=== PATIENT | female | born 1990 | race Caucasian/White ===

== ENCOUNTER 2017-07-26 09:54 | Inpatient (IN) | payer OTHER ==
[~2017-07-26] VITALS: Ht 162.6 cm; Wt 72.6 kg
[2017-07-26 10:30] VITALS: BP 122/78
[2017-07-26] MEDS ORDERED: GABA600T2 PO (11:09)
[2017-07-26] MEDS ORDERED: LAMO100T2 PO (11:09)
--- NOTE | 2017-07-26 11:11 | NUR ---
Initial Assessment Pt is a 26 y/o female, NKFA and NKDA, here for Opiate drug of choice r/t Heroin 1-1.5g IV daily for the last year with the last use yesterday and Benzo drug of choice r/t Xanax 4-6mg PO daily for a year with last use yesterday. Pt states that she uses Marijuana and Methamphetamine both unknown dose and frequency and last use since she states that she uses them occasionally. Pt states that she smokes 1 pack of cigarettes per day since a teenager. HHx: Anxiety, Depression, Bipolar, Chlamydia 6 months ago, insomnia, attempted suicide 06/2016, is currently homeless & in fpc in 2007. Pt denies having a seizure. FHx: Father, Mother and Sister Substance Abuse use and mother with suicided when she was 14 years old. Pt denies having a psychologist, psychiatrist or internal MD. No home medications brought. No suicidal ideations, hallucinations or delusions at this time. Pt is A&O x 3 with confusion to time and date, unsteady gait with ambulation. Features symmetrical, PERRLA 3-4mm, mild dizziness, no STALLINGS at this time. Pt denies chest pain, pulses present on BUE's and BLE's. Clear lung sounds in Bilateral U/L lobes, no SOB or respiratory distress noted. Active bowel sounds in all 4 quads, Last BM today, no constipation or diarrhea noted. Pt denies dysuria and no burning or itchiness noted. Skin is not intact with tracts on BUE's FA's with Right FA a nodule with inflammation and BLE and bilateral feet with inflammation. Pt is currently anxious with anxiety, chills, hot flashes, tremors and sweating observed, frequent yawning,watery eyes, nasal congestions, stomach cramps, nausea. COWS 26 CIWA 17 Temp 98.2 HR 112 RR 18 BP 122/78 SpO2 96% RA 9/10 generalized pain. Addendum: 07/26/17 at 1641 by CARLOS PRETTY RN Pt states that she has done detox at [facility] 06/2016
[2017-07-26] MEDS ORDERED: MIRALAX 17 GM POWD.PACK PO PRN (11:15)
[2017-07-26] MEDS ORDERED: DICYCLOMINE HCL 20 MG TABLET PO PRN (11:15)
[2017-07-26] MEDS ORDERED: MAG HYDROX/AL HYDROX/SIMETH 30 ML LIQUID UDC PO PRN (11:15)
[2017-07-26] MEDS ORDERED: IBUPROFEN 600 MG TABLET PO PRN (11:15)
[2017-07-26] MEDS ORDERED: BUPRENORPHINE HCL 2 MG TAB.SUBL SL PRN (11:15)
[2017-07-26] MEDS ORDERED: MAGNESIUM HYDROXIDE 30 ML LIQUID UDC PO PRN (11:15)
[2017-07-26] MEDS ORDERED: ONDANSETRON 4 MG/2 ML VIAL IM PRN (11:15)
[2017-07-26] MEDS ORDERED: CLONIDINE HCL 0.1 MG TABLET PO PRN (11:15)
[2017-07-26] MEDS ORDERED: LORAZEPAM 2 MG/1 ML VIAL IM PRN (11:15)
[2017-07-26] MEDS ORDERED: LOPERAMIDE HCL 2 MG CAPSULE PO PRN ×2 (11:15)
[2017-07-26] MEDS ORDERED: METHOCARBAMOL 750 MG TABLET PO PRN (11:15)
[2017-07-26] MEDS ORDERED: diphenhydrAMINE 50 MG CAPSULE PO PRN (11:15)
[2017-07-26] MEDS ORDERED: HYDROXYZINE PAMOATE 25 MG CAPSULE PO PRN (11:15)
[2017-07-26] MEDS ORDERED: ACETAMINOPHEN 325 MG TABLET PO PRN (11:15)
[2017-07-26] MEDS ORDERED: LORAZEPAM 1 MG TABLET PO PRN ×3 (11:15)
[2017-07-26] MEDS: LORAZEPAM 1 MG TABLET PO SCH ×3 (11:28→21:59)
[2017-07-26] MEDS: BUPRENORPHINE HCL 2 MG TAB.SUBL SL SCH ×3 (11:32→21:59)
[2017-07-26 12:00] VITALS: BP 122/78
[2017-07-26 13:03] LABS: BASOPHILS % (AUTO) 0.4 % (0.0-2.0); EOSINOPHILS % (AUTO) 0.5 % (0.0-7.0); HEMATOCRIT 40.8 % (31.2-41.9); HEMOGLOBIN 14.8 g/dL (10.9-14.3); LYMPHOCYTES % (AUTO) 16.5 % (20.5-51.5); MEAN CORPUSCULAR HEMOGLOBIN 29.4 uug (24.7-32.8); MEAN CORPUSCULAR HGB CONC 36 g/dL (32.3-35.6); MEAN CORPUSCULAR VOLUME 81.3 fL (75.5-95.3); MONOCYTES # (AUTO) 0.3 K/uL (2.0-10.0); MONOCYTES % (AUTO) 4.5 % (0.0-11.0); NEUTROPHILS # (AUTO) 4.7 K/uL (1.8-8.9); NEUTROPHILS % (AUTO) 78.1 % (38.5-71.5); PLATELET COUNT (AUTO) 233 K/uL (179-408); RED BLOOD CELL COUNT(AUTO) 5.02 MIL/uL (3.63-4.92); WHITE BLOOD COUNT (AUTO) 6.1 K/uL (3.8-11.8)
[2017-07-26 13:06] LABS: ETHANOL < 3 MG/DL (0-0)
[2017-07-26 13:10] LABS: CARBON DIOXIDE 32 mmol/L (21-32); CHLORIDE 93 mmol/L (98-107); CREATININE 0.9 mg/dL (0.6-1.3); GLUCOSE 142 mg/dL (74-106); UREA NITROGEN, BLOOD 8 mg/dL (7-18)
[2017-07-26 13:11] LABS: ALANINE AMINOTRANSFERASE 52 U/L (14-59); ALKALINE PHOSPHATASE 82 U/L (50-136); ASPARTATE AMINOTRANSFERASE 39 U/L (15-37); BILIRUBIN,TOTAL 0.9 mg/dL (0.2-1.0); MAGNESIUM 1.8 mg/dL (1.8-2.4)
--- NOTE | 2017-07-26 13:13 | NUR ---
Critical Lab-Potassium Critical Lab Report from Turbine Engineer "Brandon" with K+ 2.1; Notified Dr. Kirkpatrick and PAIGE Garcia with no new orders at this time. Pt is A&O x 3 with confusion to time and date. Pt denies chest pain, HR 110-112 bpm. Sitter present r/t unstable gait and ambulation. Will cont. to monitor the pt.
[2017-07-26 13:14] LABS: POTASSIUM 2.1 mmol/L (3.5-5.1)
[2017-07-26 13:21] LABS: THYROID STIMULATING HORMONE 0.788 mIU/mL (0.358-3.740)
--- NOTE | 2017-07-26 14:00 | NUR ---
New Orders-Supplements New order for HCG serum, K+ and Magnesium Supplements PO.
[2017-07-26 16:00] VITALS: BP 130/76
[2017-07-26] MEDS ORDERED: MAGNESIUM OXIDE 400 MG TABLET PO ONE (17:00)
[2017-07-26] MEDS: POTASSIUM CHLORIDE 20 MEQ TAB.PRT.SR PO SCH ×2 (17:03→21:59)
[2017-07-26] MEDS: GABAPENTIN 300 MG CAPSULE PO SCH (17:07)
[2017-07-26] MEDS ORDERED: HYDR25CA PO (17:09)
[2017-07-26] MEDS ORDERED: CLON0.1T PO (17:09)
[2017-07-26] MEDS ORDERED: MIRT45TA PO (17:09)
--- NOTE | 2017-07-26 19:36 | NUR ---
End of Shift Report to the night nurse: Pt is a 36 y/o female here for heroin, xanax, meth and marijuana use; 5 day Subutex and 5 day Ativan tapers ordered. V/S stable. No PRN given during my shift. Last ELENITA and CIWA. Endorsed to the night nurse to print the pix and mount them and to have the pt sign the education sheet.
--- NOTE | 2017-07-26 19:42 | NUR ---
START OF SHIFT Patient is a 26-year-old female admitted on 07/26/17 for heroin and Xanax dependence. Patient is FULL code status, on a regular diet, with NKA/NKFA. Patient has a past medical history of anxiety, depression, bipolar disorder, insomnia, Chlamydia, with a history of suicide attempts (last attempt 06/2016). Patient is on fall and seizure precautions with no history of seizure. Patient is currently on a 5-day Ativan and 5-day Subutex taper, tolerating well. Upon assessment, patient resting in bed with eyes closed, arousable to name and touch, oriented x3. Patient is noted with some scabs and track garcia at bilateral lower extremities, with a small nodule note on patient's right forearm. Safety measures in place, 1:1 in room for safety and until urine can be given. Bed locked in low position, side rails up x2, call light within reach. Will continue to monitor.
[2017-07-26 20:00] VITALS: BP 106/61
[2017-07-27] VITALS: BP 116/72
--- NOTE | 2017-07-27 | NUR ---
COWS AND CIWA DEFERRED COWS and CIWA deferred due to patient asleep; to be assessed and scored while patient is awake. Respirations even and unlabored. Safety measures in place, call light within reach. Will continue to monitor.
[2017-07-27 04:00] VITALS: BP 101/62
--- NOTE | 2017-07-27 07:05 | NUR ---
END OF SHIFT Patient is a 26-year-old female admitted on 07/26/17 for heroin and Xanax dependence. Patient is FULL code status, on a regular diet, with NKA/NKFA. Patient has a past medical history of anxiety, depression, bipolar disorder, insomnia, Chlamydia, with a history of suicide attempts (last attempt 06/2016). Patient is on fall and seizure precautions with no history of seizure. Patient is currently on a 5-day Ativan and 5-day Subutex taper, tolerating well. Patient slept for 11 hours, total intake of 220 mL, void x2, and stool x0. No PRN medications were given. Safety measures in place, 1:1 in room for safety and until urine can be given. Bed locked in low position, side rails up x2, call light within reach. Will endorse to day shift.
--- NOTE | 2017-07-27 07:19 | NUR ---
Start of Shift Notes: Received endorsement from night nurse. Patient is a 26 year old female admitted for opiate and BZO dependence who was placed on a 5-day Subutex and 5-day Ativan taper as ordered. No adverse reactions noted. Has past medical hx of anxiety, depression, bipolar disorder and insomnia. NKA. FULL CODE. Regular diet On fall and seizure precautions. Alert and oriented x 4. Verbally responsive. Respirations even and unlabored. No SOB noted. Skin warm and dry to touch. Abdomen soft and non-distended with (+) BS in all 4 quadrants. No complains of N/V/D or constipation noted. Bladder non-distended. Ambulatory ad ubaldo with steady gait. Educated patient on her current plan of care for the day and her medication regimen. Encouraged oral fluid intake and encouraged group participation to learn new skills to prevent relapse. Will continue to monitor closely.
[2017-07-27 08:00] VITALS: BP 114/70
[2017-07-27 08:06] LABS: HEPATITIS B SURFACE AG Negative (Negative)
[2017-07-27 08:51] LABS: CREATININE 1.1 mg/dL (0.6-1.3); MAGNESIUM 1.9 mg/dL (1.8-2.4); PHOSPHOROUS 3.3 mg/dL (2.5-4.9)
--- NOTE | 2017-07-27 08:51 | NUR ---
Critical Lab Report: Call received from lab and spoke to Brandon Tidwell and reported critical lab value result of Potassium level 2.5L to charge nurse, Macy Montez. Charge nurse notified MD and orders will be entered. No s.s of hypokalemia noted at this time.
[2017-07-27 08:52] LABS: POTASSIUM 2.5 mmol/L (3.5-5.1)
[2017-07-27] MEDS: BUPRENORPHINE HCL 2 MG TAB.SUBL SL SCH ×3 (08:53→20:28)
[2017-07-27] MEDS: GABAPENTIN 300 MG CAPSULE PO SCH ×3 (08:53→20:28)
[2017-07-27] MEDS: LORAZEPAM 1 MG TABLET PO SCH ×3 (08:54→20:28)
[2017-07-27] MEDS ORDERED: TUBERCULIN,PURIF.PROT.DERIV. 5 TU/0.1 ML TEST ID ONE (09:00)
[2017-07-27] MEDS: ONDANSETRON ODT 4 MG TAB.RAPDIS SL PRN (09:39)
--- NOTE | 2017-07-27 09:39 | NUR ---
Clonidine 0.1mg PO given/Zofran 4 mg SL given: Patient noted with complain of anxiety, noted with diaphoresis and x 2 episodes of vomiting. Medicated patient with BP 114/70, Pulse 93. Medicated patient with Zofran 4 mg SL and Clonidine 0.1mg PO as ordered. Will monitor for effectiveness.
--- NOTE | 2017-07-27 10:18 | NUR ---
Psych MD Communication: Patient was seen by Dr. Adamson today. Patient requested for her Lamictal to be reconciled. Orders received from Dr. Adamson who is currently driving and is unable to enter in orders at this time for patient to be started on Lamictal 25 mg PO QHS at this time. Orders noted and carried out. Patient education provided.
--- NOTE | 2017-07-27 10:39 | NUR ---
Re-assessment: Clonidine/Zofran Patient assessed. Noted to be laying in bed with eyes closed. Appears to be sleeping. Breathing even and unlabored. RR 16. Arousable. Continues to be on 1:1. PRN Clonidine and Zofran was effective.
[2017-07-27 12:00] VITALS: BP 96/59
[2017-07-27] MEDS ORDERED: MAGNESIUM OXIDE 400 MG TABLET PO ONE (12:00)
[2017-07-27] MEDS: POTASSIUM CHLORIDE 20 MEQ TAB.PRT.SR PO SCH ×2 (12:11→14:20)
--- NOTE | 2017-07-27 12:16 | NUR ---
K replaced/Mag replaced/Bladder scan results: Potassium and Magnesium supplement given. Bladder scan performed and obtained >473cc of urine. Patient was then able to void without difficulty and was able to provide urine for UDS which was sent to lab. Patient is ambulating ad ubaldo with steady gait. Does not appear to be sedated at this time. Will continue to monitor and notify MD Kirkpatrick.
--- NOTE | 2017-07-27 12:30 | NUR ---
Off 1:1 Patient is off the 1:1 at this time per MD Kirkpatrick. Patient is ambulatory ad ubaldo steadily. No complains of dizziness or lightheadedness. Oriented x 4. No confusion noted. Per MD Kirkpatrick, patient is OK to be off 1:1 at this time.
[2017-07-27 12:49] LABS: *URINE HCG, QUAL NEGATIVE (NEGATIVE)
[2017-07-27 12:59] LABS: *AMPHETAMINE, URINE POSITIVE (NEGATIVE); *BARBITURATE, URINE NEGATIVE (NEGATIVE); *CANNABINOID, URINE POSITIVE (NEGATIVE); *COCCAINE, URINE NEGATIVE (NEGATIVE); *OPIATE, URINE POSITIVE (NEGATIVE); *PHENCYCLIDINE SCREEN,URINE NEGATIVE (NEGATIVE)
[2017-07-27 16:00] VITALS: BP 92/55
[2017-07-27 18:29] LABS: CREATININE 0.9 mg/dL (0.6-1.3); PHOSPHOROUS 3.5 mg/dL (2.5-4.9); POTASSIUM 3.6 mmol/L (3.5-5.1)
--- NOTE | 2017-07-27 19:04 | NUR ---
End of Shift Notes: Patient continues to be on 5-day Subutex and 5-day Ativan as ordered. No adverse reactions noted. VS monitored closely. No significant abnormalities noted. Withdrawal symptoms were closely monitored. Initial COWS 8/CIWA 8, patient presented with facial flushing, restless legs, chills, nausea, vomiting, myalgia, tremors, anxiety, agitation and paresthesia, and fullness of head. Denies AV hallucinations. No S/I or H/I noted. Medicated patient with Clonidine 0.1mg PO and Zofran 4 mg SL at 0939 as ordered with help after 1hour. Last COWS 4/CIWA 3. Able to provide urine for UDS. Seen by Dr. Adamson (psychiatrist) today and reconciled patient's psych meds. Taken off 1:1 at 1230. Patient is ambulating steadily. On fall and seizure precautions. Unable to participate in group and activities due to her withdrawal symptoms. All needs met and attended. Will continue to monitor closely.
--- NOTE | 2017-07-27 19:05 | NUR ---
Start of Shift Patient Received. Patient is in her room, sleeping but easily aroused to verbal stimuli. Breathing even and non labored. Patient is a 26 year old female admitted on 07/26/17 for Opiate and Benzo Dependence under the care of Dr. Kirkpatrick. Patient continues on a 5 day Ativan and 5 day Subutex taper. Patient verbalizes no known allergies, wishes to be full code, following a regular diet, placed on fall and seizure precautions. Skin noted with scabs to bilateral feet with no signs of infection noted. Patients past medical history noted as Anxiety, Depression, Bipolar, Insomnia, History of STD, and history of suicide attempt 06/2016. Patient denies suicidal ideations. Per endorsement, Patient received PRN Clonidine and Zofran with medications noted to be effective. All needs attended to promptly. Will continue plan of care as ordered.
[2017-07-27 20:24] VITALS: BP 98/68
[2017-07-27] MEDS: CLONIDINE HCL 0.1 MG TABLET PO SCH (20:27)
[2017-07-27] MEDS: LAMOTRIGINE 25 MG TABLET PO SCH (20:28)
[2017-07-27] MEDS: MIRTAZAPINE 15 MG TABLET PO SCH (20:28)
[2017-07-28 00:39] VITALS: BP 97/65
[2017-07-28 04:59] VITALS: BP 100/58
--- NOTE | 2017-07-28 07:07 | NUR ---
End of Shift Patient is in bed awake, alert and verbally responsive. Breathing even and non labored. Patient is a 26 year old female admitted on 07/26/17 for Opiate and Benzo Dependence and continues on a 5 day Ativan and 5 day Subutex taper. No Known Allergies, Full Code, Regular Diet, placed on fall and seizure precautions. Skin noted with scabs to bilateral feet with no signs of infection noted. No PRN Medications administered. Last noted COWS 6 and CIWA 6. All needs attended to promptly. Will endorse to continue plan of care as ordered.
[2017-07-28 08:00] VITALS: BP 115/65
[2017-07-28] MEDS: GABAPENTIN 300 MG CAPSULE PO SCH ×3 (08:34→20:26)
[2017-07-28] MEDS: CLONIDINE HCL 0.1 MG TABLET PO SCH ×2 (08:34→20:29)
[2017-07-28] MEDS: LORAZEPAM 1 MG TABLET PO SCH ×4 (08:34→20:27)
[2017-07-28] MEDS ORDERED: BUPRENORPHINE HCL 2 MG TAB.SUBL SL SCH (09:00)
[2017-07-28 12:00] VITALS: BP 99/60
[2017-07-28] MEDS: BUPRENORPHINE HCL 2 MG TAB.SUBL SL SCH ×2 (14:05→20:27)
[2017-07-28 16:00] VITALS: BP 92/53
[2017-07-28] MEDS ORDERED: POTASSIUM CHLORIDE 20 MEQ TAB.PRT.SR PO ONE (17:00)
--- NOTE | 2017-07-28 19:01 | NUR ---
End of Shift Notes: Patient continues to be on 5-day Subutex and 5-day Ativan as ordered. No adverse reactions noted. VS monitored closely. No significant abnormalities noted. Withdrawal symptoms were closely monitored. Initial COWS 7/CIWA 7, patient presented with facial flushing, restless legs, chills, tremors, anxiety, agitation and paresthesia, and fullness of head. Denies AV hallucinations. No S/I or H/I noted. Last COWS 4/CIWA 4. On fall and seizure precautions. Unable to participate in group and activities due to her withdrawal symptoms. All needs met and attended. Will continue to monitor closely.
--- NOTE | 2017-07-28 19:20 | NUR ---
Start of Shift Patient Received. Patient is in bed sleeping but easily aroused to verbal stimuli. Breathing even and non labored. Patient is a 26 year old female admitted on 07/26/17 for Opiate and Benzo Dependence and continues on a 5 day Ativan and 5 day Subutex taper. No Known Allergies, Full Code, Regular Diet, placed on fall and seizure precautions. Skin noted with scabs to bilateral feet with no signs of infection noted. Per endorsement, No PRN medicaitons administered. Last noted CIWA 4 and COWS. All needs attended to promptly. Will continue plan of care as ordered.
[2017-07-28 20:24] VITALS: BP 99/63
[2017-07-28] MEDS: MIRTAZAPINE 15 MG TABLET PO SCH (20:26)
[2017-07-28] MEDS: LAMOTRIGINE 25 MG TABLET PO SCH (20:26)
[2017-07-29 00:41] VITALS: BP 103/64
[2017-07-29 04:15] VITALS: BP 101/60
--- NOTE | 2017-07-29 07:06 | NUR ---
End of Shift Patient is in bed sleeping. Breathing even and non labored. Patient is a 26 year old female admitted on 07/26/17 for Opiate and Benzo Dependence and continues on a 5 day Ativan and 5 day Subutex taper. Patient is noted to very withdrawn, easily agitated, labile, avoids eye contact. Encouraged and offered support. Patient responded with "I'm just tired." Patient noted to be odorous and encouraged patient to shower and change clothes but patient refused. No PRN medications administered. Last noted CIWA 7 and COWS 7. All needs attended to promptly. Will endorse to continue plan of care as ordered.
[2017-07-29 08:00] VITALS: BP 102/53
[2017-07-29] MEDS: BUPRENORPHINE HCL 2 MG TAB.SUBL SL SCH ×3 (08:55→20:33)
[2017-07-29] MEDS: LORAZEPAM 1 MG TABLET PO SCH ×3 (08:56→20:33)
[2017-07-29] MEDS: GABAPENTIN 300 MG CAPSULE PO SCH ×3 (08:56→20:33)
[2017-07-29] MEDS: CLONIDINE HCL 0.1 MG TABLET PO SCH ×2 (08:56→20:33)
--- NOTE | 2017-07-29 11:13 | NUR ---
Therapist tried to prompt client about group times. Client was sedated and sleeping.
[2017-07-29 12:00] VITALS: BP 102/55
[2017-07-29] MEDS ORDERED: KETOROLAC TROMETHAMINE 30 MG INJ IM PRN (15:30)
[2017-07-29 16:00] VITALS: BP 115/72
[2017-07-29] MEDS: LAMOTRIGINE 25 MG TABLET PO SCH (16:11)
--- NOTE | 2017-07-29 19:01 | NUR ---
End of Shift Notes: Patient continues to be on 5-day Subutex and 5-day Ativan as ordered. No adverse reactions noted. VS monitored closely. No significant abnormalities noted. Withdrawal symptoms were closely monitored. Initial COWS 8/CIWA 8, patient presented with facial flushing, restless legs, chills, tremors, anxiety, agitation and paresthesia. Denies AV hallucinations. No S/I or H/I noted. Last COWS 4/CIWA 5. On fall and seizure precautions. Unable to participate in group and activities due to her withdrawal symptoms. All needs met and attended. Will continue to monitor closely.
--- NOTE | 2017-07-29 19:15 | NUR ---
Start of Shift Patient Received. Patient is in her room, sleeping but easily aroused to verbal stimuli. Breathing even and non labored. Patient is a 26 year old female admitted on 07/26/17 for Opiate and Benzo Dependence and continues on a 5 day Ativan and 5 day Subutex taper. Per endorsement, Last noted COWS 4 and CIWA 5. No PRN medications administered. Patient noted to not participate in group meetings and social activities. Patient was also encouraged to shower but refused to shower. All needs attended to promptly. Will continue to monitor.
[2017-07-29 20:29] VITALS: BP 96/64
[2017-07-29] MEDS: MIRTAZAPINE 15 MG TABLET PO SCH (20:32)
[2017-07-29] MEDS: BACLOFEN 10 MG TABLET PO SCH (20:33)
[2017-07-30 00:31] VITALS: BP 99/53
[2017-07-30 04:18] VITALS: BP 101/59
--- NOTE | 2017-07-30 07:09 | NUR ---
End of Shift Patient is in bed sleeping. Breathing even and non labored. Patient continues on a 5 day Ativan and 5 day Subutex taper. Patient is noted to be isolative to room, refuses to shower, noted to be easily agitated, anxious, flat, and blunt. Patient is noted to not participate in group meetings and social activities. Last noted CIWA 5 and COWS 4. All needs attended to promptly. Will endorse to continue to monitor.
--- NOTE | 2017-07-30 08:49 | NUR ---
Start of Shift Report: COW 8 CIWA 1 Recieved report from chemical instrumentation officer. Pt easily agitated/anxious On day 4-5 Ativan and subutex tamper. Encourage po fluids. Continue to observe for safety. Call light within reach.
[2017-07-30] MEDS: BACLOFEN 10 MG TABLET PO SCH ×3 (08:56→20:05)
[2017-07-30] MEDS: GABAPENTIN 300 MG CAPSULE PO SCH ×3 (08:56→20:05)
[2017-07-30] MEDS: CLONIDINE HCL 0.1 MG TABLET PO SCH ×3 (08:57→20:05)
[2017-07-30] MEDS: LAMOTRIGINE 25 MG TABLET PO SCH ×2 (08:57→16:57)
[2017-07-30] MEDS: LORAZEPAM 1 MG TABLET PO SCH ×2 (08:57→20:05)
[2017-07-30] MEDS: BUPRENORPHINE HCL 2 MG TAB.SUBL SL SCH ×2 (09:01→20:04)
[2017-07-30 09:26] VITALS: BP 106/58
[2017-07-30 12:10] VITALS: BP 108/60
[2017-07-30] MEDS ORDERED: GABA-534 PO (16:26)
[2017-07-30] MEDS ORDERED: IBUP-1955 PO (16:26)
[2017-07-30] MEDS ORDERED: CLON0.1T14 PO (16:26)
[2017-07-30] MEDS ORDERED: METH-406 PO (16:26)
[2017-07-30] MEDS ORDERED: DICY20TA28 PO (16:26)
[2017-07-30] MEDS ORDERED: LAMO25TA5 PO (16:26)
[2017-07-30] MEDS ORDERED: HYDR-3895 PO (16:26)
[2017-07-30] MEDS ORDERED: MIRT15TA7 PO (16:26)
[2017-07-30 16:48] VITALS: BP 101/58
--- NOTE | 2017-07-30 17:34 | NUR ---
End of Shift Report: A/ox4 CIWA 2 COW 2 more cooperative with staff Remains Ativan/Subutex taper. Took shower. Refused groups. V/s wnl skin w/d color good.Encouraged groups, verbalize feelings and fluid intake. Cont to observe for fall/sz/ and safety. Call light within reach.
--- NOTE | 2017-07-30 19:15 | NUR ---
START OF SHIFT Received 26 year old female patient admitted on 07/26/17 for Heorin, Xanax, Methamphetamine and Marijuana dependency. Pt is full code with NKA. She reports a PMHx of anxiety, depression, bipolar, insomnia, suicide attempt in 2016, and chlamydia. She reports using Heroin 1-1.5 grams IV for 1 year. Last dose was 07/25/17. Xanax 4-6 mg daily for 1 year. Methamphetamine 1 line (snort) once a day intermittently. Last dose was 07/23/17. And Marijuana 1 gram daily for 1 year. Pt is currently receiving 5 day Ativan and 5 day Subutex taper and tolerating well. Per endorsement, she did not receive PRN medications. Pt is alert and oriented x4, noted to be withdrawn and agitated. Safety measures in place. Will monitor.
[2017-07-30] MEDS: MIRTAZAPINE 15 MG TABLET PO SCH (20:04)
[2017-07-30 20:07] VITALS: BP 107/70
--- NOTE | 2017-07-31 | NUR ---
VITALS REFUSED, COWS/CIWA DEFERRED Pt refused 0000 vitals signs. COWS and CIWA deferred d/t pt lying in bed with eyes closed noted to be asleep. Respirations 16, breathing even and unlabored. Safety measures in place. Will continue to monitor.
--- NOTE | 2017-07-31 07:08 | NUR ---
END OF SHIFT Pt is a 26 year old female patient admitted on 07/26/17 for Heorin, Xanax, Methamphetamine and Marijuana dependency. Pt is full code with NKA. Pt continues on a 5 day Ativan and 5 day Subutex taper and tolerating well. She did not receive or request PRN medications. She slept a total of 9 hrs, Intake: 500mL, Void: x2, BM:0, COWS:5, CIWA:4. Pt remains alert and oriented x4, and still noted to be withdrawn. Safety measures in place. Endorsed to AM shift.
--- NOTE | 2017-07-31 07:43 | NUR ---
Start of shift note; Received report form night nurse. Patient is a 26 year old female admitted on 07/26/17 to detoxify from Heroin/ Benzodiazepine and methamphetamine. Patient was placed on Ativan and Subutex taper, no adverse reactions noted. NKA, full code status on a regular diet. Patient reported history of anxiety, depression, bipolar disorder, insomnia. Patient slept for 9 hours. Patient had an uneventful night. All safety measures secured. Will continue to monitor patient.
[2017-07-31 08:00] VITALS: BP 110/82
[2017-07-31] MEDS: BACLOFEN 10 MG TABLET PO SCH ×3 (08:36→20:11)
[2017-07-31] MEDS: CLONIDINE HCL 0.1 MG TABLET PO SCH ×3 (08:36→20:11)
[2017-07-31] MEDS: LAMOTRIGINE 25 MG TABLET PO SCH ×2 (08:36→16:31)
[2017-07-31] MEDS: GABAPENTIN 300 MG CAPSULE PO SCH ×3 (08:37→20:10)
[2017-07-31] MEDS ORDERED: LORAZEPAM 1 MG TABLET PO SCH (09:00)
[2017-07-31] MEDS ORDERED: BUPRENORPHINE HCL 2 MG TAB.SUBL SL SCH (09:00)
[2017-07-31 12:00] VITALS: BP 94/68
[2017-07-31 16:00] VITALS: BP 111/71
--- NOTE | 2017-07-31 18:29 | NUR ---
End of shift note; Patient is AOX4. Patient remained compliant with treatment plan and medication regime. Medications noted to be effective in reducing withdrawal symptoms. Patient is medically cleared for discharge tomorrow. All safety measures secured. Met all needs.
--- NOTE | 2017-07-31 19:15 | NUR ---
START OF SHIFT Received 26 year old female patient admitted on 07/26/17 for Heroin, Xanax, Methamphetamine and Marijuana dependency. Pt is full code with MELLY. She reports a PMHx of anxiety, depression, bipolar, insomnia, suicide attempt in 2016, and chlamydia. She reports using Heroin 1-1.5 grams IV for 1 year. Last dose was 07/25/17. Xanax 4-6 mg daily for 1 year. Methamphetamine 1 line (snort) once a day intermittently. Last dose was 07/23/17. And Marijuana 1 gram daily for 1 year. Pt completed a 5 day Ativan and 5 day Subutex taper and tolerated well. Per endorsement, she did not receive PRN medications and she is scheduled to be DC tomorrow to [facility]. Pt is alert and oriented x4, noted to be withdrawn. Safety measures in place. Will continue to monitor.
[2017-07-31 20:00] VITALS: BP 121/72
[2017-07-31] MEDS: MIRTAZAPINE 15 MG TABLET PO SCH (21:28)
--- NOTE | 2017-08-01 04:00 | NUR ---
VITALS REFUSED, COWS/CIWA DEFERRED She refused 0400 vitals signs. COWS and CIWA deferred d/t pt lying in bed with eyes closed noted to be asleep. Respirations 16, breathing even and unlabored. Safety measures in place. Will continue to monitor.
--- NOTE | 2017-08-01 06:58 | NUR ---
END OF SHIFT Pt is a 26 year old female patient admitted on 07/26/17 for Heroin, Xanax, Methamphetamine and Marijuana dependency. Pt is full code with NKA. She is scheduled to be DC today to [facility]. She did not receive or request PRN medications. She slept a total of 6 hrs, Intake: 750mL, Void: x1, BM:0, COWS:4, CIWA:3. Pt remains alert and oriented x4, noted to be withdrawn. Safety measures in place. Endorsed to AM shift.
--- NOTE | 2017-08-01 07:30 | NUR ---
Start of shift note; Received report form night nurse. Patient is a 26 year old female admitted on 07/26/17 to detoxify from Heroin/ Benzodiazepine and methamphetamine. Patient was placed on Ativan and Subutex taper, no adverse reactions noted. NKA, full code status on a regular diet. Patient reported history of anxiety, depression, bipolar disorder, insomnia. Patient is medically cleared for discharge today. Patient had an uneventful night. All safety measures secured. Will continue to monitor patient.
[2017-08-01 08:00] VITALS: BP 130/75
[2017-08-01] MEDS: LAMOTRIGINE 25 MG TABLET PO SCH (08:37)
[2017-08-01 08:38] VITALS: BP 130/75
[2017-08-01] MEDS: CLONIDINE HCL 0.1 MG TABLET PO SCH (08:38)
[2017-08-01] MEDS: GABAPENTIN 300 MG CAPSULE PO SCH (08:38)
[2017-08-01] MEDS: BACLOFEN 10 MG TABLET PO SCH (08:38)
[2017-08-01] MEDS: ONDANSETRON ODT 4 MG TAB.RAPDIS SL PRN (08:53)
--- NOTE | 2017-08-01 08:53 | NUR ---
PRN medication; Patient reported nausea and anxiety. Patient stated "Im very anxious and probably nervous about my discharge". Non-pharmacological relaxation techniques ineffective. PRN Zofran 4mg ODT given for nausea and Vistaril 25mg PO given for anxiety. Will continue to monitor patient.
--- NOTE | 2017-08-01 09:20 | NUR ---
Discharge note; Patient is AOX4. No further nausea or anxiety noted, PRN medications were effective. All valuables, belongings and prescriptions given to patient. Patient was escorted by PUBLIC HEALTH DIETITIAN out of the hospital at exactly 0920 on 08/01/17. Patient left in a stable condition. Patient to be transferred to treatment Center to continue sobriety. Met all needs.
== END 2017-08-01 09:20 | disposition other institution (70) | DRG 895 ==
LOC: SRC 09:54
PROVIDERS: ADMIT Internal Medicine; ATTEND Internal Medicine
PROC: HZ2ZZZZ Detoxification Services for Substance Abuse Treatment (ICD-10-PCS; principal; 2017-07-26)
PROC: HZ31ZZZ Individual Counseling for Substance Abuse Treatment, Behavioral (ICD-10-PCS; 2017-07-29)
PROC: HZ41ZZZ Group Counseling for Substance Abuse Treatment, Behavioral (ICD-10-PCS; 2017-07-31)
DX: F11.23 Opioid dependence with withdrawal (principal); E87.3 Alkalosis; F31.60 Bipolar disorder, current episode mixed, unspecified; E86.0 Dehydration; F15.10 Other stimulant abuse, uncomplicated; F17.210 Nicotine dependence, cigarettes, uncomplicated; F13.230 Sedative, hypnotic or anxiolytic dependence with withdrawal, uncomplicated; Z91.14 Patient's other noncompliance with medication regimen; Z59.1 Inadequate housing; Z59.0 Homelessness; E87.6 Hypokalemia; Z79.899 Other long term (current) drug therapy; F12.90 Cannabis use, unspecified, uncomplicated
CPT/HCPCS: 36415; 70030-TC; 80307; 80324; 80346; 80349; 80361; 83735; 84100; 84443; 84703; 85025; 86580; 86592; 86705; 86803; 87340; 87806; A4663; G0480; Q0162